=== PATIENT | female | born 1985 | race Caucasian/White ===

== ENCOUNTER 2017-04-13 08:10 | Outpatient (CLI) | payer BC ==
[~2017-04-13] VITALS: Ht 162.6 cm; Wt 70.9 kg
[~2017-04-13 08:10] MED LIST: GENTAMICIN EYE D5 ML OP; MOTRIN 600600 MG/TAB PO; NO HOME MEDICATIONS; PERCOCET 325 MG1 TA2 PO; TAMIFLU 75MG75 MG PO
[2017-04-13 08:29] VITALS: BP 120/78; PULSE 65; TEMP 98.1
[2017-04-13] MEDS ORDERED: PRENATAL MVI (08:40)
[2017-04-13] MEDS ORDERED: CEPHALEXIN500 M1 PO (08:40)
[2017-04-13] MEDS ORDERED: VITAMIN C500 MG PO (08:41)
[2017-04-13] MEDS ORDERED: FERRO-TIME325 MG PO (08:41)
[2017-04-13 08:45] VITALS: BP 111/70; PULSE 62
[2017-04-13 10:00] VITALS: BP 120/77; PULSE 64
[2017-04-13 10:30] VITALS: BP 107/68; PULSE 66
== END 2017-04-13 11:10 | disposition home or self-care (01) ==
LOC: LDRO 08:10 → LDR 08:15 → LDRO 11:10
DX: O62.9 Abnormality of forces of labor, unspecified (principal); Z3A.38 38 weeks gestation of pregnancy
CPT/HCPCS: OP

== ENCOUNTER 2017-04-19 00:51 | Inpatient (IN) | payer BC ==
[2017-04-19] VITALS (16 sets, daily range): BP systolic 101–143; BP diastolic 53–84; PULSE 50–74; TEMP 97.6–99.1
[~2017-04-19] VITALS: Ht 162.6 cm; Wt 73.6 kg
[~2017-04-19 00:51] MED LIST changes: +CEPHALEXIN500 M1 PO; +FERRO-TIME325 MG PO; +PRENATAL MVI; +VITAMIN C500 MG PO
[2017-04-19 01:55] LABS: BASO % 0.4 % (0.0-2.0); EOS # 0.1 (0.0-0.7); GRAN # 6.3 (1.4-6.5); GRAN % 54.9 % (42.2-75.2); LYMPH % 35.3 % (20.0-51.0); MEAN CELL VOLUME 99 fl (80.0-100.0); MEAN CORPUSCULAR HGB CONC 34 g/dl (33.0-37.0); MEAN PLATELET VOLUME 9.6 fl (7.4-10.4); MONO # 0.8 (0.1-0.6); PLATELET COUNT 198 K/mm3 (130-400); RED BLOOD COUNT 3.55 M/mm3 (4.10-5.30); WHITE BLOOD COUNT 11.4 K/mm3 (4.8-10.8)
[2017-04-19 02:04] LABS: HEMATOCRIT 35.2 % (37.0-47.0); HEMOGLOBIN 11.9 g/dl (12.5-16.0); MEAN CORPUSCULAR HEMOGLOBIN 34 pg (27.0-31.0)
[2017-04-20 07:59] VITALS: BP 104/64; PULSE 76; TEMP 98.2
[2017-04-20] MEDS ORDERED: IBU800 M1 PO (08:48)
== END 2017-04-20 13:19 | disposition home or self-care (01) | DRG 775 ==
LOC: LDRO 00:51 → LDR 01:20 → OB 05:30
PROVIDERS: Obstetrics & Gynecology
PROC: 10E0XZZ Delivery of Products of Conception, External Approach (ICD-10-PCS; principal; 2017-04-19)
PROC: 0HQ9XZZ Repair Perineum Skin, External Approach (ICD-10-PCS; 2017-04-19)
DX: O70.0 First degree perineal laceration during delivery (principal); Z3A.39 39 weeks gestation of pregnancy; Z37.0 Single live birth
CPT/HCPCS: J2590; J2795; J7120

== ENCOUNTER 2017-10-06 18:10 | Emergency (ER) | payer OTHER, BC ==
[~2017-10-06] VITALS: Ht 162.6 cm; Wt 72.7 kg
[~2017-10-06 18:10] MED LIST changes: +IBU800 M1 PO
[2017-10-06 18:13] VITALS: BP 125/78; TEMP 97.3
[2017-10-06 19:54] VITALS: PULSE 72
== END 2017-10-06 19:55 | disposition home or self-care (01) ==
LOC: COL.ER 18:10
DX: S60.212A Contusion of left wrist, initial encounter (principal); V49.9XXA Car occupant (driver) (passenger) injured in unspecified traffic accident, initial encounter